=== PATIENT | female | born 1965 | race Caucasian/White ===

== ENCOUNTER → 2017-06-11 | Outpatient (CLI) | payer BC ==
[~2017-06-11] VITALS: Ht 165.1 cm; Wt 79.4 kg
[~2017-06-11] MED LIST: CALCIUM + D3 E1 EACH PO; FIBER500 MG PO; ONE DAILY WOME1 EACH PO
== END | disposition home or self-care (01) ==
LOC: AMB 12:37
PROC: 0DBL8ZX Excision of Transverse Colon, Via Natural or Artificial Opening Endoscopic, Diagnostic (ICD-10-PCS; principal; 2017-06-11)
DX: D12.3 Benign neoplasm of transverse colon (principal); M19.90 Unspecified osteoarthritis, unspecified site; E66.3 Overweight; Z68.29 Body mass index [BMI] 29.0-29.9, adult; I89.0 Lymphedema, not elsewhere classified; Z82.49 Family history of ischemic heart disease and other diseases of the circulatory system; Z83.3 Family history of diabetes mellitus; Z82.3 Family history of stroke; Z81.4 Family history of other substance abuse and dependence
CPT/HCPCS: 88305; J3010